=== PATIENT | male | born 1995 | race Caucasian/White ===

== ENCOUNTER 2021-01-11 12:44 | Emergency (ER) | payer SELFPAY ==
[~2021-01-11] VITALS: Ht 175.3 cm; Wt 65.0 kg
[2021-01-11 13:55] VITALS: BP 112/78
== END 2021-01-11 13:53 | disposition home or self-care (01) ==
LOC: ER 12:44
DX: Z48.02 Encounter for removal of sutures (principal)
CPT/HCPCS: 99281; Z7610